=== PATIENT | female | born 1985 | race Two or more races ===

== ENCOUNTER 2024-09-22 15:13 | Emergency (ER) | payer MEDICAID, SELFPAY ==
[2024-09-22 15:21] VITALS: PULSE 90; O2SAT 98; BMI 41.3
[2024-09-22 15:26] VITALS: BP 136/94; PULSE 94; RESP 18; TEMP 36.6; O2SAT 99
--- NOTE | 2024-09-22 15:34 | EKG_ITS ---
[facility] Test Date: 2024-09-22 Pat Name: MARY ELLEN CHILD Department: Room: - Gender: Female Ssas Developer: : 1985 Requested By: Roni Garcia (SIERRA) Order Number: [id number] Reading MD: Roni Garcia ([employer]) Measurements Intervals [place] Rate: 89 P: 37 VT: 149 QRS: 26 QRSD: 90 T: 52 QT: 328 QTc: 400 Interpretive Statements SINUS RHYTHM LOW QRS VOLTAGE IN PRECORDIAL LEADS [QRS DEFLECTION < 1.0 mV IN CHEST LEADS] Compared to ECG 05/24/2022 03:22:42 Low QRS voltage now present Sinus tachycardia no longer present Myocardial infarct finding no longer present /store/S0/[id number]/ecg/[id number].pdf
--- NOTE | 2024-09-22 15:34 | PD.EDRME ---
Rapid Medical Screening Exam RME Arrival date/time: 09/22/24 15:13 39-year-old female with medical history significant for hypertension and diabetes presents emergency department complains of headache, neck pain, dizziness and diarrhea Chief Complaint: Extremity Injury, Upper Vital signs: Vital Signs Temperature 97.9 F 09/22/24 15:26 Pulse Rate 94 09/22/24 15:26 Respiratory Rate 18 09/22/24 15:26 Blood Pressure 136/94 H 09/22/24 15:26 Pulse Oximetry (%) 99 09/22/24 15:26 Oxygen Delivery Method Room Air 09/22/24 15:26
[2024-09-22 16:15] LABS: Basophils % (Auto) 0 % (0-2.5); Eosinophils # (Auto) 0.2 Thou/mm3 (0.0-0.5); Eosinophils % (Auto) 2 % (0-10); Hemoglobin 14.6 g/dL (12.0-16.0); Immature Granulocytes % (Auto) 1 % (0-0); Immature Granulocytes Auto 0.07 Thou/mm3 (0.00-0.00); Lymphocytes # (Auto) 2.5 Thou/mm3 (1.0-4.8); Lymphocytes % (Auto) 24 % (10-50); Mean Corpuscular Hemoglobin 28.9 pg (25.0-35.0); Mean Corpuscular Volume 85 fL (80-100); Monocytes # (Auto) 0.6 Thou/mm3 (0.0-0.8); Monocytes % (Auto) 6 % (0-12); Neutrophils # (Auto) 6.9 Thou/mm3 (1.8-7.7); Neutrophils % (Auto) 67 % (37-80); Nucleated Red Blood Cell % 0 /100 WBC (0); Platelet Count 258 Thou/mm3 (140-440); RDW Standard Deviation 41.5 fL (36.4-46.3); Red Blood Count 5.05 Miln/mm3 (4.00-5.20); White Blood Count 10.4 Thou/mm3 (3.6-11.0)
[2024-09-22 16:21] LABS: Collection Type, Urine Clean Catch
[2024-09-22 16:39] LABS: Alanine Aminotransferase 16 U/L (10-49); Albumin, Serum 4.5 gm/dL (3.5-5.0); Albumin/Globulin Ratio 1.3 (1.2-2.2); Alkaline Phosphatase 105 U/L (46-116); Anion Gap 6 (7-16); Aspartate Amino Transferase 16 U/L (0-34); BUN/Creatinine Ratio 13 Ratio (12-20); Bilirubin,Total 0.6 mg/dL (0.3-1.2); Blood Urea Nitrogen 10 mg/dL (9-23); Calcium 10.1 mg/dL (8.3-10.6); Calcium (Corrected) 10.1 mg/dL (8.5-10.1); Carbon Dioxide 28.4 mMol/L (20.0-31.0); Chloride 103 mMol/L (98-107); Creatinine (Component) 0.8 mg/dL (0.6-1.3); Estimated Creatinine Clearance 124.7 mL/min (>60); Globulin 3.4 gm/dL (2.3-3.5); Glucose 125 mg/dL (74-106); Lipase 34 U/L (12-53); Osmolality,Calculated 273 (275-295); Potassium 4.7 mMol/L (3.4-5.1); Sodium 137 mMol/L (136-145); Total Protein 7.9 gm/dL (5.7-8.2); Troponin I < 0.020 ng/mL (0.0-0.045); eGFR > 60 See Note
[2024-09-22 16:41] LABS: HCG Qualitative,Urine Negative
[2024-09-22 16:49] LABS: Bacteria,Urine Rare; Bilirubin,Urine Negative (Negative); Blood,Urine 3+ (Negative); Color,Urine Lt-Yellow (Lt Yel-Yel); Glucose, Urine Negative (Negative); Ketones,Urine Negative (Negative); Leukocyte Esterase,Urine Positive (Negative); Nitrite,Urine Negative (Negative); Protein,Urine Negative (Neg - Trace); RBC,Urine 134 /hpf (0-3); Specific Gravity,Urine 1.021 (1.001-1.035); Squamous Epithelial Cell,Urine 7 /hpf (0-5); Urobilinogen,Urine Negative mg/dL (0.0-1.0); WBC,Urine 52 /hpf (0-5)
[2024-09-22 17:16] LABS: Clarity,Urine Hazy (Clear/Hazy); Culture Indicated,Urine Yes
--- NOTE | 2024-09-22 20:39 | EDNOTE_ITS ---
ED General RME/HPI General Chief complaint: Extremity Injury, Upper Stated complaint: NECK AND RT ARM PAIN Time Seen by Provider: 09/22/24 19:25 Arrival date/time: 09/22/24 15:13 Limitations: no limitations RME / HPI RME / HPI narrative: DR. CODY MAIN ED EVALUATION: 39-year-old female with history of hypertension and diabetes coming to the emergency department with right muscle pain that started today when she was having stress. The patient states that when she gets stressed she feels her muscles tighten up on both sides of her shoulders. Today it tightened up more on the right side of her shoulder. It feels like a dull ache without radiation. Denies nausea vomiting sweating or radiation. No dizziness or lightheadedness. No trouble ambulating. Patient reports that she does have the symptoms in the past. The patient reports that she was in CAT scan and it happened again. As soon as she was told she was not getting the CAT scan. The muscle relaxant and she felt better. Related Data Previous Rx's ?Medication ?Instructions ?Recorded ibuprofen 800 mg tablet 800 mg PO Q8H #30 tabs 04/19/20 cyclobenzaprine 5 mg tablet 5 mg PO Q8H PRN muscle spasm #14 06/14/21 tabs ibuprofen 800 mg tablet 800 mg PO Q8H PRN pain #30 tabs 06/14/21 meclizine 25 mg tablet 25 mg PO BID #20 tabs 08/28/21 meclizine 50 mg tablet (Antivert) 50 mg PO BID PRN dizziness #20 tabs 11/08/23 ibuprofen 600 mg tablet 600 mg PO TID PRN pain #30 tabs 12/16/23 Allergies Allergy/AdvReac Type Severity Reaction Status Date / Time No Known Allergies Allergy Verified 06/19/24 03:29 Review of Systems Review of Systems Systems Reviewed: All systems reviewed, normal except as documented Narrative Review of Systems: GEN: No fever, no chills, no weight loss EYES: No discharge, no visual changes, no pain HEENT: No ear pain, no congestion, no sore throat PULM: No shortness of breath, no cough, no congestion CV: No chest pain, no dyspnea on exertion, no palpitations GI: No nausea, no vomiting, no diarrhea, no pain, no constipation : No frequency, no urgency and no dysuria MUSC/SKEL: + right muscle pain/ when she gets stressed muscles tighten up on both sides of her shoulders, no back pain SKIN: No rash PSYCH: No hallucinations, no depression HEME/LYMPH: No easy bleeding or bruising tendencies NEURO: No weakness, no headache Past Medical History Past Medical History ENDOCRINE: Positive Diabetes Mellitus Type 2 PSYCHO/SOCIAL: Positive Anxiety OTHER HISTORY: Positive Blood Transfusions Surgical History SURGICAL: Positive Nose Surgery (2019) and Oral Surgery (jaw surgery, 4 metal plates upper mandible) Social History SMOKING STATUS: Never smoker SUBSTANCE USE: does not use ALCOHOL: Never ED Exam Narrative Physical exam: Patient appears slightly anxious but talking in full sentences. Full range of motion of her neck with no obvious distress. General Limitations: Present no limitations General appearance: Present alert; Absent appears intoxicated Head Head exam: Present atraumatic, normocephalic and normal inspection Eye Eye exam: Present normal appearance, PERRL and EOMI ENT ENT exam: Present normal exam, normal oropharynx and mucous membranes moist Neck Neck exam: Present normal inspection, full ROM and trachea midline Chest Chest inspection: Present normal inspection and symmetric chest wall rise Respiratory Respiratory exam: Present normal lung sounds bilaterally Cardiovascular Cardiovascular exam: Present regular rate, normal rhythm and normal heart sounds Abdominal Exam Abdominal exam: Present soft and normal bowel sounds Extremities Exam Extremities exam: Present normal inspection and full ROM Back Exam Back exam: Present normal inspection, full ROM, muscle spasm and paraspinal tenderness (Right side); Absent tenderness, CVA tenderness (R), CVA tenderness (L) or vertebral tenderness Neurological Exam Neurological exam: Present alert, oriented X3 and CN II-XII intact Psychiatric Psychiatric exam: Present normal affect and normal mood Skin Skin exam: Present warm, dry, intact and normal color; Absent rash Course Course Course Narrative: Patient is offered medication for relaxation as well as nonsteroidal. She has a ride home. Quality Measures none Orders Category Date Time Status EKG (ED ONLY) *Do not use* NOW Care 09/22/24 15:34 Completed EKG (ED Only) Stat Exams 09/22/24 15:34 Draft CBC Stat Lab 09/22/24 15:59 Completed Comprehensive Metabolic Panel Stat Lab 09/22/24 15:59 Completed HCG Qualitative,Urine Stat Lab 09/22/24 16:15 Completed Lipase Stat Lab 09/22/24 15:59 Completed Troponin I Stat Lab 09/22/24 15:59 Completed UA, C/S IF [Urinalysis, C/S if Indicated] Stat Lab 09/22/24 16:15 Completed Urine Culture Stat Lab 09/22/24 16:15 Stop Req Diazepam [Valium] Med 09/22/24 20:45 Discontinued 5 mg PO X1 ONE Ketorolac Inj [Toradol Inj] Med 09/22/24 20:43 Discontinued 30 mg IM X1 ONE Vital Signs Vital signs: Vital Signs Temperature 97.9 F 09/22/24 15:26 Pulse Rate 94 09/22/24 15:26 Respiratory Rate 18 09/22/24 15:26 Blood Pressure 136/94 H 09/22/24 15:26 Pulse Oximetry (%) 99 09/22/24 15:26 Oxygen Delivery Method Room Air 09/22/24 15:26 Procedures -ED EKG Interpretation #1: Date of EK09/22/24 Time of EK:39 Rate: 89 Interpretation: Reviewed by me Additional EKG comment: Normal sinus rhythm. Low voltage. No ST elevation VT. Normal intervals. Impression no ST elevation VT. Similar from EKG 2021 [facility] Patient data External records reviewed:: [facility] previous records (Reviewed last ED visit dated 06/19/24, discharged with the following: Anxiety.) Clinical information provided by:: patient Social determinants that could affect healthcare access:: none Patient has the following chronic illnesses:: Hypertension and diabetes How is presenting disease/condition affected by chronic disease/condition?: u neffected by Evaluation data The following diagnostics were reviewed and interpreted by me:: lab results and EKG tracing(s) Lab and/or radiology exams considered but not ordered:: none Interpretation Summary: See under MDM narrative. Medications Medications considered but not ordered:: none Medication administrations:: Medication Administration History Discontinued Medications Diazepam (Diazepam 5 Mg Tablet) 5 mg PO X1 ONE Stop: 09/22/24 20:46 Last Admin: 09/22/24 20:58 Dose: 5 mg Documented By: LISA Ketorolac Tromethamine (Ketorolac Inj 60 Mg/2 Ml Vial) 30 mg IM X1 ONE Stop: 09/22/24 20:44 Last Admin: 09/22/24 20:58 Dose: 30 mg Documented By: LISA see above Consultations Consultation(s) initiated? (list below): No Diagnosis Differential Diagnosis ED Complaint MDM: stress, muscle spasm, atypical presentation of coronary artery disease,.. Most likely diagnosis given after review of the tests above:: Muscle spasm History of hypertension History of diabetes mellitus Admission Indicated Admission indicated?: not indicated Explain why admission is indicated or not indicated:: Patient has no emergent abnormalities on his studies and can be managed on an outpatient basis. Admission Request Was there a request for admission?: No Disposition Plan Disposition Plan: Discharge Discharge Attestation Discharge Attestation: The patient and all family members were given an opportunity to ask questions and understood the discharge instructions. Discharge instructions specifically effects, indications for sooner follow up or return to the emergency department, and the expected course of current diagnosis. Patient condition: Stable Medical Decision Making MDM Narrative MDM Narrative: Differential diagnosis includes stress, muscle spasm, atypical presentation of coronary artery disease, doubt pulmonary embolism, patient not complaining of headache and doubt worst headache of life or subarachnoid hemorrhage. Patient denies any trauma and otherwise has no numbness tingling or weakness down her right upper extremity. Doubt cervical radiculopathy. Patient otherwise without swelling and good distal pulses. While in the emergency department EKG is obtained and it is unremarkable not worrisome for acute VT or non-STEMI. Her white count is 10 with a H&H that is stable at 14 and 43. Normal platelets and otherwise blood glucose is 125. Patient's diabetes is under control at this time. Plan: Toradol is offered Valium x 1 for muscle relaxation Oral hydration. The patient will follow-up with her primary care tomorrow. Recommended to return for any worsening symptoms, or any other concerns. - Luna Bland, am scribing for and in the presence of Dr. Cody. Differential Diagnosis Differential Diagnosis: stress, muscle spasm, atypical presentation of coronary artery disease,.. Lab Data 09/22/24 15:59 09/22/24 15:59 Labs: Lab Results 09/22/24 09/22/24 Range/Units 15:59 16:15 WBC 10.4 (3.6-11.0) Thou/mm3 RBC 5.05 (4.00-5.20) Miln/mm3 Hgb 14.6 (12.0-16.0) g/dL Hct 43.0 (36.0-46.0) % MCV 85 (80-100) fL MCH 28.9 (25.0-35.0) pg MCHC 34.0 (31.0-37.0) g/dl RDW Std Deviation 41.5 (36.4-46.3) fL Plt Count 258 (140-440) Thou/mm3 Neut % (Auto) 67 (37-80) % Lymph % (Auto) 24 (10-50) % Sullivan % (Auto) 6 (0-12) % Eos % (Auto) 2 (0-10) % Baso % (Auto) 0 (0-2.5) % Neut # (Auto) 6.9 (1.8-7.7) Thou/mm3 Lymph # (Auto) 2.5 (1.0-4.8) Thou/mm3 Sullivan # (Auto) 0.6 (0.0-0.8) Thou/mm3 Eos # (Auto) 0.2 (0.0-0.5) Thou/mm3 Baso # (Auto) 0.0 (0.0-0.2) Thou/mm3 Immature Gran # (Auto) 0.07 H (0.00-0.00) Thou/mm3 Absolute Nucleated RBC 0.00 (0.00-0.00) Thou/mm3 Immature Gran % 1 H (0-0) % Nucleated RBC % 0 (0) /100 WBC Sodium 137 (136-145) mMol/L Potassium 4.7 (3.4-5.1) mMol/L Chloride 103 (98-107) mMol/L Carbon Dioxide 28.4 (20.0-31.0) mMol/L Anion Gap 6 L (7-16) BUN 10 (9-23) mg/dL Creatinine 0.8 (0.6-1.3) mg/dL Estim Creat Clear Calc 124.7 (>60) mL/min eGFR > 60 (60 - ) See Note BUN/Creatinine Ratio 13 (12-20) Ratio Glucose 125 H (74-106) mg/dL Calculated Osmolality 273 L (275-295) Calcium 10.1 (8.3-10.6) mg/dL Corrected Calcium 10.1 (8.5-10.1) mg/dL Total Bilirubin 0.6 (0.3-1.2) mg/dL AST 16 (0-34) U/L ALT 16 (10-49) U/L Alkaline Phosphatase 105 (46-116) U/L Troponin I < 0.020 (0.0-0.045) ng/mL Total Protein 7.9 (5.7-8.2) gm/dL Albumin 4.5 (3.5-5.0) gm/dL Globulin 3.4 (2.3-3.5) gm/dL Albumin/Globulin Ratio 1.3 (1.2-2.2) Lipase 34 (12-53) U/L Ur Collection Type Clean Catch Urine Color Lt-Yellow (Lt Yel-Yel) Urine Clarity Hazy (Clear/Hazy) Urine pH 6.0 (5.0-7.0) Ur Specific [place] 1.021 (1.001-1.035) Urine Protein Negative (Neg - Trace) Urine Glucose (UA) Negative (Negative) Urine Ketones Negative (Negative) Urine Blood 3+ A (Negative) Urine Nitrite Negative (Negative) Urine Bilirubin Negative (Negative) Urine Urobilinogen (Auto) Negative (0.0-1.0) mg/dL Ur Leukocyte Esterase Positive (Negative) Urine RBC 134 H (0-3) /hpf Urine WBC 52 H (0-5) /hpf Ur Squamous Epith Cells 7 H (0-5) /hpf Urine Bacteria Rare (None) Ur Culture Indicated? Yes Urine HCG, Qual Negative Discharge Plan Plan Patient Disposition: HOME (Self Care) Patient condition on transfer: Stable Prescriptions/Referrals Prescriptions/Med Rec: No Action ibuprofen 800 mg tablet 800 mg PO Q8H Qty: 30 0RF cyclobenzaprine 5 mg tablet 5 mg PO Q8H PRN (Reason: muscle spasm) Qty: 14 0RF ibuprofen 800 mg tablet 800 mg PO Q8H PRN (Reason: pain) Qty: 30 0RF meclizine 25 mg tablet 25 mg PO BID Qty: 20 0RF meclizine [Antivert] 50 mg tablet 50 mg PO BID PRN (Reason: dizziness) Qty: 20 0RF ibuprofen 600 mg tablet 600 mg PO TID PRN (Reason: pain) Qty: 30 0RF Referrals: Jael Michele PA-C [Primary Care Provider] - Problem List Clinical Impression: Muscle spasm, History of hypertension, History of diabetes mellitus Patient/Caregiver Discharge Instructions Education Materials: ED Muscle Spasm Additional Instructions: You have some blood that is in your urine which may be from your.. Please follow-up with your primary care in the next 1 month so that you can get a repeat urinalysis as an outpatient. Please follow-up with your primary care tomorrow to talk to her about medication for stress and or other referral. Return to the emergency department if you want to hurt yourself or hurt anybody else. You can take [id number] Tylenol 650 mg 3 times a day and/or Motrin 600 mg with food 3 times a day as needed for the next 2 to 3 days. Print Language: Divehi Stand Alone Forms: [facility]ryn Award Info., Patient Portal Info Letter
[2024-09-22] MEDS: DIAZEPAM 5 MG TABLET PO (20:58)
[2024-09-22] MEDS: KETOROLAC INJ 60 MG/2 ML VIAL 30 MG IM (20:58)
[2024-09-22 21:00] VITALS: BP 125/67; PULSE 89; RESP 19; TEMP 37.1; O2SAT 99
== END 2024-09-22 21:02 | disposition home or self-care (01) ==
PROVIDERS: Nurse Practitioner Primary Care; Emergency Provider Emergency Medicine; PCP Physician Assistant
DX: M62.838 Other muscle spasm (principal); E11.9 Type 2 diabetes mellitus without complications; I10 Essential (primary) hypertension
CPT/HCPCS: 36415; 80053; 81001; 81025; 83690; 84484; 85025; 87086; 93005; 96372; 99283; J1885; A9270

== ENCOUNTER 2025-03-31 18:21 | Emergency (ER) | payer MEDICAID, SELFPAY ==
[2025-03-31 18:22] VITALS: BMI 45.6
[2025-03-31 19:07] VITALS: BP 128/85; PULSE 84; RESP 20; TEMP 36.8; O2SAT 95
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
[2025-03-31] MEDS: DIAZEPAM 5 MG TABLET 10 MG PO (19:30)
[2025-03-31 20:35] VITALS: BP 128/88; PULSE 77; RESP 18; TEMP 36.8; O2SAT 100
== END 2025-03-31 20:36 | disposition home or self-care (01) ==
PROVIDERS: Emergency Provider Emergency Medicine
DX: F41.9 Anxiety disorder, unspecified (principal); R20.2 Paresthesia of skin; R94.31 Abnormal electrocardiogram [ECG] [EKG]
CPT/HCPCS: 93005; 99283; A9270

== ENCOUNTER → 2025-07-14 | Outpatient (CLI) | payer MEDICAID, SELFPAY ==
--- NOTE | 2025-07-14 14:30 | XR_ITS ---
Examination: Arterial duplex left upper extremity study. Date and time of exam: July 14, 2025, 1457 hours INDICATIONS: Palpable lump and swelling in the left arm one year Findings: Duplex sonographic imaging of the lower left upper extremity arteries using B-mode/Bruner scale imaging and Doppler spectral analysis and color flow. No elevation peak systolic velocities involving left subclavian, axillary, brachial, radial or ulnar arteries Incidental note soft tissue lipoma in the upper arm 13 x 6 x 17 mm at the area of palpable lump IMPRESSION: Negative for significant arterial stenoses Soft tissue lipoma at the area of palpable lump in the left arm
== END | disposition home or self-care (01) ==
LOC: CDIM 14:35
PROVIDERS: PCP Nurse Practitioner Family; Referring Provider Nurse Practitioner Family; Visit Provider Nurse Practitioner Family
DX: R22.32 Localized swelling, mass and lump, left upper limb (principal)
CPT/HCPCS: 93931

== ENCOUNTER 2025-09-28 21:58 | Emergency (ER) | payer MEDICAID, SELFPAY ==
[2025-09-28 22:00] VITALS: BMI 46.3
[2025-09-28 22:23] VITALS: BP 119/79; PULSE 111; RESP 16; TEMP 37.1; O2SAT 96
--- NOTE | 2025-09-28 22:34 | XR_ITS ---
Examination: Transvaginal ultrasound of the pelvis, complete Technique: Transvaginal sonographic images pelvis performed using dick scale imaging Exam date and time: September 28, 2025, 10:52 p.m. INDICATIONS: Left pelvic pain beginning 3:00 p.m. today FINDINGS: Uterus 7.6 cm, endometrial stripe 0.9 cm No uterine mass or intrauterine gestation Right ovary 3.1 cm arterial flow Left ovary 3.2 cm arterial flow IMPRESSION: No uterine mass or intrauterine gestation.
--- NOTE | 2025-09-28 22:35 | PD.EDABDPN ---
ED Abdominal Pain RME/HPI General Chief Complaint: Abdominal Pain Stated complaint: L SIDED ABD PAIN, NASUEA Time seen by provider: 09/28/25 22:33 Arrival date/time: 09/28/25 21:58 40F with history of DM, psych, and cholecystectomy presents to ED with several days of L-sided ab pain and N/V. No gross hematuria/dysuria. Patient is not on cycle. Limitations: no limitations Related Data Previous Rx's ?Medication ?Instructions ?Recorded ibuprofen 800 mg tablet 800 mg PO Q8H #30 tabs 04/19/20 cyclobenzaprine 5 mg tablet 5 mg PO Q8H PRN muscle spasm #14 06/14/21 tabs ibuprofen 800 mg tablet 800 mg PO Q8H PRN pain #30 tabs 06/14/21 meclizine 25 mg tablet 25 mg PO BID #20 tabs 08/28/21 meclizine 50 mg tablet (Antivert) 50 mg PO BID PRN dizziness #20 tabs 11/08/23 ibuprofen 600 mg tablet 600 mg PO TID PRN pain #30 tabs 12/16/23 naproxen 500 mg tablet 500 mg PO BID PRN pain #14 tabs 09/29/25 Allergies Allergy/AdvReac Type Severity Reaction Status Date / Time No Known Allergies Allergy Verified 09/28/25 22:03 Review of Systems Review of Systems Systems Reviewed: All systems reviewed, normal except as documented Gastrointestinal Gastrointestinal: Reports as per HPI, Reports nausea and Reports vomiting Genitourinary Genitourinary: Reports as per HPI and Reports pelvic pain Past Medical History Past Medical History CARDIAC: Negative Congestive Heart Failure RESPIRATORY: Negative Chronic Obstructive Pulmonary Disease (COPD) GENITOURINARY: Negative Renal Disease ENDOCRINE: Positive Diabetes Mellitus Type 2; Negative Diabetes Mellitus Type 1 PSYCHO/SOCIAL: Positive Anxiety OTHER HISTORY: Positive Blood Transfusions; Negative Blood Transfusion Reaction or Anesthesia Reactions Surgical History SURGICAL: Positive Nose Surgery (2019) and Oral Surgery (jaw surgery, 4 metal plates upper mandible) Social History SMOKING STATUS: Never smoker SUBSTANCE USE: does not use ED Exam General Limitations: Present no limitations General appearance: Present alert and in no apparent distress Head Head exam: Present atraumatic Neck Neck exam: Present normal inspection, full ROM and trachea midline Chest Chest inspection: Present normal inspection and symmetric chest wall rise Abdominal Exam Abdominal exam: Present soft Abdominal tenderness: Present LUQ, LLQ and mild Back Exam Back exam: Present normal inspection and full ROM Neurological Exam Neurological exam: Present alert and oriented X3 Psychiatric Psychiatric exam: Present normal affect and normal mood Skin Skin exam: Present warm, dry, intact and normal color Course Quality Measures none Orders Category Date Time Status CT abdomen pelvis wo con Stat Exams 09/28/25 22:33 Ordered US transvaginal Stat Exams 09/28/25 22:34 Completed CBC Stat Lab 09/28/25 23:09 Completed CMP [Comprehensive Metabolic Panel] Stat Lab 09/28/25 23:09 Completed HCG Qualitative,Urine Stat Lab 09/28/25 22:35 Completed Lipase Stat Lab 09/28/25 23:09 Completed Urinalysis, C/S if Indicated Stat Lab 09/28/25 22:35 Completed Naproxen [Naprosyn] Med 09/28/25 22:33 Discontinued 500 mg PO X1 ONE Ondansetron Odt [Zofran Odt] Med 09/28/25 22:33 Discontinued 4 mg PO X1 ONE Vital Signs Vital signs: Vital Signs Temperature 98.8 F 09/28/25 22:23 Pulse Rate 111 H 09/28/25 22:23 Respiratory Rate 16 09/28/25 22:23 Blood Pressure 119/79 09/28/25 22:23 Pulse Oximetry (%) 96 09/28/25 22:23 Oxygen Delivery Method Room Air 09/28/25 22:23 O2 at 96% on RA and WNLs Abdominal Pain MDM MDM Narrative MDM Narrative:: 40F with history of DM, psych, and cholecystectomy presents to ED with several days of L-sided ab pain and N/V. No gross hematuria/dysuria. Patient is not on cycle. Physical exam reveals some L-sided ab tenderness, but no CVA tenderness. Patient is afebrile, calm, and alert. Patient eloped due to not wanting to due CT due to anxiety/claustrophobia. Patient data External records reviewed:: [facility] previous records Clinical information provided by:: patient Social determinants that could affect healthcare access:: none Patient has the following chronic illnesses:: DM How is presenting disease/condition affected by chronic disease/condition?: exacerbated by Evaluation data The following diagnostics were reviewed and interpreted by me:: lab results and radiology exam(s) Lab and/or radiology exams considered but not ordered:: ordered Interpretation Summary: above Medications / Prescriptions Medications or Prescriptions considered but not ordered:: ordered Medication administrations:: Medication Administration History Discontinued Medications Naproxen (Naproxen 250 Mg Tablet) 500 mg PO X1 ONE Stop: 09/28/25 22:34 Last Admin: 09/28/25 23:19 Dose: 500 mg Documented By: CONCETTA Ondansetron HCl (Ondansetron Odt 4 Mg Tabrap) 4 mg PO X1 ONE; Protocol Stop: 09/28/25 22:34 Last Admin: 09/28/25 23:20 Dose: 4 mg Documented By: CONCETTA above Consultations Consultation(s) initiated? (list below): No Diagnosis Differential diagnosis abdominal pain: abdominal pain, acute appendicitis, calculus of kidney, constipation, diverticulitis, gastroenteritis, pancreatitis, small bowel obstruction and other (gastritis, pelvic pain, torsion) Most likely diagnosis given after review of the tests above:: ab pain Admission Indicated Admission indicated?: not indicated Admission Request Was there a request for admission?: No Disposition Plan Disposition Plan: other (specify) (eloped) Discharge Plan Plan Patient Disposition: Elopement Prescriptions/Referrals Prescriptions/Med Rec: New naproxen 500 mg tablet 500 mg PO BID PRN (Reason: pain) Qty: 14 0RF No Action ibuprofen 800 mg tablet 800 mg PO Q8H Qty: 30 0RF cyclobenzaprine 5 mg tablet 5 mg PO Q8H PRN (Reason: muscle spasm) Qty: 14 0RF ibuprofen 800 mg tablet 800 mg PO Q8H PRN (Reason: pain) Qty: 30 0RF meclizine 25 mg tablet 25 mg PO BID Qty: 20 0RF meclizine [Antivert] 50 mg tablet 50 mg PO BID PRN (Reason: dizziness) Qty: 20 0RF ibuprofen 600 mg tablet 600 mg PO TID PRN (Reason: pain) Qty: 30 0RF Referrals: Juanito Hall FNP [Primary Care Provider] - In 1 week Problem List Clinical Impression: Abdominal pain Patient/Caregiver Discharge Instructions Print Language: Ukrainian GELACIO/EKG MANAGER Supervising Physician GELACIO/RORY Supervising Physician: Dr. Nowak
[2025-09-28 22:55] LABS: Collection Type, Urine Clean Catch
[2025-09-28 23:04] LABS: Bacteria,Urine Rare; Bilirubin,Urine Negative (Negative); Blood,Urine 3+ (Negative); Clarity,Urine Clear (Clear/Hazy); Color,Urine Yellow (Lt Yel-Yel); Culture Indicated,Urine Not Indicated; Glucose, Urine 3+ (Negative); Ketones,Urine Negative (Negative); Leukocyte Esterase,Urine Negative (Negative); Nitrite,Urine Negative (Negative); PH,Urine 5.5 (5.0-7.0); Protein,Urine Trace (Neg - Trace); RBC,Urine 5 /hpf (0-3); Specific Gravity,Urine 1.028 (1.001-1.035); Squamous Epithelial Cell,Urine 9 /hpf (0-5); Urobilinogen,Urine 2.0 mg/dL (0.0-1.0); WBC,Urine 8 /hpf (0-5)
[2025-09-28] MEDS: NAPROXEN 250 MG TABLET 500 MG PO (23:19)
[2025-09-28 23:20] LABS: HCG Qualitative,Urine Negative
[2025-09-28] MEDS: ONDANSETRON ODT 4 MG TABRAP PO (23:20)
[2025-09-28 23:23] LABS: Basophils # (Auto) 0.1 Thou/mm3 (0.0-0.2); Basophils % (Auto) 0 % (0-2.5); Eosinophils # (Auto) 0.2 Thou/mm3 (0.0-0.5); Eosinophils % (Auto) 2 % (0-10); Hematocrit 42.8 % (36.0-46.0); Hemoglobin 14.4 g/dL (12.0-16.0); Immature Granulocytes Auto 0.11 Thou/mm3 (0.00-0.00); Lymphocytes # (Auto) 3.1 Thou/mm3 (1.0-4.8); Lymphocytes % (Auto) 25 % (10-50); Mean Corpuscular HGB Conc 33.6 g/dl (31.0-37.0); Mean Corpuscular Hemoglobin 28.7 pg (25.0-35.0); Mean Corpuscular Volume 85 fL (80-100); Monocytes # (Auto) 0.8 Thou/mm3 (0.0-0.8); Monocytes % (Auto) 7 % (0-12); Neutrophils # (Auto) 8.1 Thou/mm3 (1.8-7.7); Neutrophils % (Auto) 65 % (37-80); Nucleated Red Blood Cell # 0.00 Thou/mm3 (0.00-0.00); Nucleated Red Blood Cell % 0 /100 WBC (0); Platelet Count 284 Thou/mm3 (140-440); RDW Standard Deviation 41.5 fL (36.4-46.3); Red Blood Count 5.02 Miln/mm3 (4.00-5.20); White Blood Count 12.4 Thou/mm3 (3.6-11.0)
[2025-09-28 23:40] LABS: Alanine Aminotransferase 41 U/L (10-49); Albumin, Serum 4.4 gm/dL (3.5-5.0); Albumin/Globulin Ratio 1.3 (1.2-2.2); Alkaline Phosphatase 125 U/L (46-116); Anion Gap 11 (7-16); Aspartate Amino Transferase 47 U/L (0-34); BUN/Creatinine Ratio 13 Ratio (12-20); Bilirubin,Total 0.4 mg/dL (0.3-1.2); Blood Urea Nitrogen 10 mg/dL (9-23); Calcium 9.5 mg/dL (8.3-10.6); Calcium (Corrected) 9.5 mg/dL (8.5-10.1); Carbon Dioxide 25.5 mMol/L (20.0-31.0); Chloride 102 mMol/L (98-107); Creatinine (Component) 0.8 mg/dL (0.6-1.3); Estimated Creatinine Clearance 123.1 mL/min (>60); Globulin 3.5 gm/dL (2.3-3.5); Glucose 290 mg/dL (74-106); Lipase 33 U/L (12-53); Osmolality,Calculated 285 (275-295); Potassium 4.2 mMol/L (3.4-5.1); Sodium 138 mMol/L (136-145); Total Protein 7.9 gm/dL (5.7-8.2); eGFR > 60 See Note
--- NOTE | 2025-09-29 01:05 | PC.NURSE ---
PT STATED SHED COULD NOT DO CT DID NOT FEEL COMFORTABLE CAUSED MUCH ANXIETY. PT ENCOURAGED TO RETURN IF SHE DID NOT FEEL BETTER.
== END 2025-09-29 03:16 | disposition left against medical advice (07) ==
PROVIDERS: Physician Assistant; Emergency Provider Emergency Medicine; PCP Nurse Practitioner Family
DX: R10.9 Unspecified abdominal pain (principal); R10.22 Pelvic and perineal pain left side; R11.2 Nausea with vomiting, unspecified
CPT/HCPCS: 36415; 76830; 80053; 81001; 81025; 83690; 85025; 99283; Q0162; A9270

== ENCOUNTER 2025-10-07 23:07 | Emergency (ER) | payer MEDICAID, SELFPAY ==
[2025-10-07 23:08] VITALS: BMI 45.6
[2025-10-07 23:17] VITALS: BP 132/93; PULSE 87; RESP 19; TEMP 36.7; O2SAT 97
[2025-10-08] MEDS: DICYCLOMINE 10 MG CAPSULE PO (00:18)
[2025-10-08] MEDS: FAMOTIDINE 20 MG TABLET 40 MG PO (00:18)
[2025-10-08] MEDS: ONDANSETRON ODT 4 MG TABRAP PO (00:18)
[2025-10-08] MEDS: MG HYD/AL HYD/SIME (Maalox Reg) SUSP 30 ML UDC PO (00:18)
--- NOTE | 2025-10-08 01:12 | PD.EDNV ---
Nausea/Vomit./Diarrhea-RME/HPI General Chief complaint: Nausea/Vomiting/Diarrhea Stated complaint: VOMITING, DIARRHEA, ACID REFLUX Time Seen by Provider: 10/07/25 23:58 Arrival date/time: 10/07/25 23:07 40F with history of DM, psych, and cholecystectomy presents to ED with several days of burning epigastric pain, N/V, and some non-bloody diarrhea. Limitations: no limitations Related Data Previous Rx's ?Medication ?Instructions ?Recorded ibuprofen 800 mg tablet 800 mg PO Q8H #30 tabs 04/19/20 cyclobenzaprine 5 mg tablet 5 mg PO Q8H PRN muscle spasm #14 06/14/21 tabs ibuprofen 800 mg tablet 800 mg PO Q8H PRN pain #30 tabs 06/14/21 meclizine 25 mg tablet 25 mg PO BID #20 tabs 08/28/21 meclizine 50 mg tablet (Antivert) 50 mg PO BID PRN dizziness #20 tabs 11/08/23 ibuprofen 600 mg tablet 600 mg PO TID PRN pain #30 tabs 12/16/23 naproxen 500 mg tablet 500 mg PO BID PRN pain #14 tabs 09/29/25 dicyclomine 10 mg capsule 10 mg PO BID PRN abdominal pain 10/08/25 #14 caps ondansetron 4 mg disintegrating 4 mg PO Q8H PRN nausea and 10/08/25 tablet vomiting #14 tabs Allergies Allergy/AdvReac Type Severity Reaction Status Date / Time No Known Allergies Allergy Verified 10/07/25 23:08 Review of Systems Review of Systems Systems Reviewed: All systems reviewed, normal except as documented Gastrointestinal Gastrointestinal: Reports as per HPI, Reports abdominal pain, Reports diarrhea, Reports nausea and Reports vomiting Past Medical History Past Medical History CARDIAC: Negative Congestive Heart Failure RESPIRATORY: Negative Chronic Obstructive Pulmonary Disease (COPD) GENITOURINARY: Negative Renal Disease ENDOCRINE: Positive Diabetes Mellitus Type 2; Negative Diabetes Mellitus Type 1 PSYCHO/SOCIAL: Positive Anxiety OTHER HISTORY: Positive Blood Transfusions; Negative Blood Transfusion Reaction or Anesthesia Reactions Surgical History SURGICAL: Positive Nose Surgery (2019) and Oral Surgery (jaw surgery, 4 metal plates upper mandible) Social History SMOKING STATUS: Never smoker SUBSTANCE USE: does not use ED Exam General Limitations: Present no limitations General appearance: Present alert and in no apparent distress Head Head exam: Present atraumatic Neck Neck exam: Present normal inspection, full ROM and trachea midline Chest Chest inspection: Present normal inspection and symmetric chest wall rise Abdominal Exam Abdominal exam: Present soft; Absent tenderness Neurological Exam Neurological exam: Present alert and oriented X3 Psychiatric Psychiatric exam: Present normal affect and normal mood Skin Skin exam: Present warm, dry, intact and normal color Course Quality Measures none Orders Category Date Time Status Dicyclomine [Bentyl] Med 10/07/25 23:58 Discontinued 10 mg PO X1 ONE Famotidine [Pepcid] Med 10/07/25 23:58 Discontinued 40 mg PO X1 ONE Ondansetron Odt [Zofran Odt] Med 10/07/25 23:58 Discontinued 4 mg PO X1 ONE mg Hyd/Al Hyd/Ken Susp [Maalox Susp] Med 10/07/25 23:58 Discontinued 30 ml PO X1 ONE Vital Signs Vital signs: Vital Signs Temperature 98.1 F 10/07/25 23:17 Pulse Rate 87 10/07/25 23:17 Respiratory Rate 19 10/07/25 23:17 Blood Pressure 132/93 H 10/07/25 23:17 Pulse Oximetry (%) 97 10/07/25 23:17 Oxygen Delivery Method Room Air 10/07/25 23:17 O2 at 97% on RA and WNLs Nausea/Vomiting/Diarrhea MDM Narrative MDM Narrative:: 40F with history of DM, psych, and cholecystectomy presents to ED with several days of burning epigastric pain, N/V, and some non-bloody diarrhea. Physical exam reveals no ab tenderness. Patient is afebrile, calm, and alert. Patient just wants med, which improved symptoms. Patient data External records reviewed:: [facility] previous records Clinical information provided by:: patient Social determinants that could affect healthcare access:: mental health Patient has the following chronic illnesses:: DM, psych, and cholecystectomy How is presenting disease/condition affected by chronic disease/condition?: exacerbated by Evaluation data The following diagnostics were reviewed and interpreted by me:: other (specify) (none) Lab and/or radiology exams considered but not ordered:: not ordered Interpretation Summary: n/a Medications / Prescriptions Medications / Prescriptions considered but not ordered:: ordered Medication administrations:: Medication Administration History Discontinued Medications Al Hydrox/Mg Hydrox/Simethicone (Mg Hyd/Al Hyd/Ken (Maalox Reg) Susp 30 Ml Udc) 30 ml PO X1 ONE Stop: 10/07/25 23:59 Last Admin: 10/08/25 00:18 Dose: 30 ml Documented By: EMY Dicyclomine HCl (Dicyclomine 10 Mg Capsule) 10 mg PO X1 ONE Stop: 10/07/25 23:59 Last Admin: 10/08/25 00:18 Dose: 10 mg Documented By: EMY Famotidine (Famotidine 20 Mg Tablet) 40 mg PO X1 ONE Stop: 10/07/25 23:59 Last Admin: 10/08/25 00:18 Dose: 40 mg Documented By: EMY Ondansetron HCl (Ondansetron Odt 4 Mg Tabrap) 4 mg PO X1 ONE; Protocol Stop: 10/07/25 23:59 Last Admin: 10/08/25 00:18 Dose: 4 mg Documented By: EMY above Consultations Consultation(s) initiated? (list below): No Diagnosis Nausea Differential Diagnosis: traveler's diarrhea, food poisoning, gastroenteritis, clostridium difficile infection, drug-induced nausea and vomiting and dehydration Most likely diagnosis given after review of the tests above:: gastroenteritis Admission Indicated Admission indicated?: not indicated Admission Request Was there a request for admission?: No Disposition Plan Disposition Plan: Discharge Discharge Attestation Discharge Attestation: The patient and all family members were given an opportunity to ask questions and understood the discharge instructions. Discharge instructions specifically effects, indications for sooner follow up or return to the emergency department, and the expected course of current diagnosis. Patient condition: Stable Discharge Plan Plan Patient Disposition: HOME (Self Care) Discharge Disposition comment: Stable Prescriptions/Referrals Prescriptions/Med Rec: New dicyclomine 10 mg capsule 10 mg PO BID PRN (Reason: abdominal pain) Qty: 14 0RF ondansetron 4 mg tablet,disintegrating 4 mg PO Q8H PRN (Reason: nausea and vomiting) Qty: 14 0RF No Action ibuprofen 800 mg tablet 800 mg PO Q8H Qty: 30 0RF cyclobenzaprine 5 mg tablet 5 mg PO Q8H PRN (Reason: muscle spasm) Qty: 14 0RF ibuprofen 800 mg tablet 800 mg PO Q8H PRN (Reason: pain) Qty: 30 0RF meclizine 25 mg tablet 25 mg PO BID Qty: 20 0RF meclizine [Antivert] 50 mg tablet 50 mg PO BID PRN (Reason: dizziness) Qty: 20 0RF ibuprofen 600 mg tablet 600 mg PO TID PRN (Reason: pain) Qty: 30 0RF naproxen 500 mg tablet 500 mg PO BID PRN (Reason: pain) Qty: 14 0RF Referrals: Juanito Hall FNP [Primary Care Provider] - In 1 week Problem List Clinical Impression: Gastroenteritis Patient/Caregiver Discharge Instructions Education Materials: ED Diarrhea, Viral (Adult) Additional Instructions: Please follow-up with PCP within 24-48 hours and return immediately if symptoms worsen. Keep hydrated. Advance diet as tolerated. Can take OTC Pepcid with your TUMs. Print Language: Khmer Stand Alone Forms: Patient Portal Info Letter GELACIO/RORY Supervising Physician GELACIO/RORY Supervising Physician: Dr. Grajeda
== END 2025-10-08 01:30 | disposition home or self-care (01) ==
PROVIDERS: Emergency Provider Emergency Medicine; PCP Nurse Practitioner Family
DX: K52.9 Noninfective gastroenteritis and colitis, unspecified (principal)
CPT/HCPCS: 99281; Q0162; A9270